=== PATIENT | female | born 1935 | race Caucasian/White ===

== ENCOUNTER → 2016-08-24 | Outpatient (CLI) | payer MEDICARE, OTHER ==
--- NOTE | 2016-08-24 15:07 | CT ---
EXAMINATION TYPE: CT abdomen pelvis wo con DATE OF EXAM: 08/24/2016 2:58 PM HISTORY: Distended lower abdomen x2 weeks per patient. Recurrent ventral wall hernia per order. CT DLP: 926 mGycm. Automated Exposure Control for Dose Reduction was Utilized. TECHNIQUE: CT scan of the abdomen and pelvis is performed with oral but without IV contrast. COMPARISON: CT abdomen and pelvis December 07, 2015 FINDINGS: Within the limitations of a non-contrast study, the following observations are made. LUNG BASES: Heart size is mildly enlarged with by basilar linear scarring and/or atelectatic change i dentified. Coronary artery calcification in the RCA is present. LIVER/GB: Gallbladder is not visualized and presumed surgically absent. PANCREAS: No significant abnormality is seen. SPLEEN: No significant abnormality is seen. ADRENALS: No significant abnormality is seen. KIDNEYS: No significant abnormality is seen. BOWEL: Oral contrast reaches level of the proximal transverse colon. There is no suspicious small or large bowel dilatation. Sutures from anastomosis sigmoid rectal colon are noted near axial image 68 m ild prominence of fecal material in the transverse colon is noted. GENITAL ORGANS: Uterus is surgically absent or markedly atrophic in appearance . LYMPH NODES: No greater than 1cm abdominal or pelvic lymph nodes are appreciated. OSSEOUS STRUCTURES: Vacuum disc phenomenon L4-L5 level with disc space narrowing is seen. OTHER: There is small fat-containing left paracentral ventral wall hernia or eventration in the mid a bdomen on axial image 33 that is stable. In the midline of the lower abdomen there is bowel containing eventration or ventral wall hernia in t he midline on axial image 56 near level of scarring. Neck of hernia measures 4.1 cm diameter on axial image 55. No suspicious dilatation of bowel loops is seen to suggest obstruction at this level. Mild to moderate calcified atherosclerotic change of aorta extending to branch vessels is noted. IMPRESSION: Recurrent incisional bowel containing hernia in the midline of the lower abdomen. No kristina l obstruction is noted.
== END | disposition home or self-care (01) ==
LOC: RADCTMAIN 14:42
PROVIDERS: ATTEND Surgery
DX: K43.2 Incisional hernia without obstruction or gangrene (principal)
CPT/HCPCS: 74176

== ENCOUNTER → 2016-11-30 | Outpatient (CLI) | payer MEDICARE, OTHER ==
[2016-12-01 08:03] LABS: Alternaria alternata IgE <0.35 kU/L (<0.35); Asperg. fumagatus IgE <0.35 kU/L (<0.35); Asperg. fumagatus IgE Class CLASS 0; Aureo. pullulans IgE <0.35 kU/L (<0.35); Birch(Com.Silvr) IgE Class CLASS 0; Candida albicans IgE Class CLASS 0; Cat Epith & Dander IgE <0.35 kU/L (<0.35); Cat Epith & Dander IgE Class CLASS 0; Clad herbarum IgE <0.35 kU/L (<0.35); Clad herbarum IgE Class CLASS 0; Com. Pigweed IgE <0.35 kU/L (<0.35); Com. Pigweed IgE Class CLASS 0; Common Ragweed IgE Class CLASS 0; Dermato. Pteronyssinus Class CLASS 0; Dermato. Pteronyssinus IgE <0.35 kU/L (<0.35); Dermato. farinae IgE <0.35 kU/L (<0.35); Dermato. farinae IgE Class CLASS 0; English Plantain IgE Class CLASS 0; Epicoccum purpurascens Class CLASS 0; Epicoccum purpurascens IgE <0.35 kU/L (<0.35); Johnson Grass IgE Class CLASS 0; Lamb's Quarter IgE <0.35 kU/L (<0.35); Lamb's Quarter IgE Class CLASS 0; Maple (Box Elder) IgE <0.35 kU/L (<0.35); Maple (Box Elder) IgE Class CLASS 0; Mucor racemosus IgE <0.35 kU/L (<0.35); Mucor racemosus IgE Class CLASS 0; Oak IgE <0.35 kU/L (<0.35); Rhizopus nigricans IgE <0.35 kU/L (<0.35); Rhizopus nigricans IgE Class CLASS 0; S.rostrata/Helminth Class CLASS 0; S.rostrata/Helminth IgE <0.35 kU/L (<0.35); Sycamore(Mpl.Lf) IgE <0.35 kU/L (<0.35); Sycamore(Mpl.Lf) IgE Class CLASS 0; Timothy Grass IgE <0.35 kU/L (<0.35); Timothy Grass IgE Class CLASS 0; Walnut Tree IgE <0.35 kU/L (<0.35); White Ash IgE Class CLASS 0
[2016-12-06 14:13] LABS: Beef IgG 13.9 mcg/mL (< 2.0); Chicken Meat IgG < 2.0 mcg/mL (< 2.0); Corn IgG < 2.0 mcg/mL (< 2.0); Peanut IgG < 2.0 mcg/mL (< 2.0); Pork IgG 2.2 mcg/mL (< 2.0); Potato IgG < 2.0 mcg/mL (< 2.0); Soybean IgG < 2.0 mcg/mL (< 2.0); Tomato IgG < 2.0 mcg/mL (< 2.0); Wheat IgG 2.6 mcg/mL (< 2.0)
== END | disposition home or self-care (01) ==
LOC: LABWHC1 09:46
PROVIDERS: ATTEND Otolaryngology
DX: J30.89 Other allergic rhinitis (principal)
CPT/HCPCS: 36415; 86001; 86003